=== PATIENT | male | born 1980 | race Caucasian/White ===

== ENCOUNTER 2017-03-23 17:02 | Emergency (ER) | payer OTHER ==
[~2017-03-23] VITALS: Ht 182.9 cm; Wt 81.8 kg
[~2017-03-23 17:02] MED LIST: ADDERALL10 MG PO; TOPROL XL 25MG25 MG PO
[2017-03-23 17:07] VITALS: TEMP 97.1
[2017-03-23 18:23] LABS: BASO % 0.4 % (0.0-2.0); EOS % 0.2 % (0-4.0); GRAN # 5.4 (1.4-6.5); GRAN % 67.4 % (42.2-75.2); HEMATOCRIT 39.2 % (42.0-52.0); HEMOGLOBIN 13.4 g/dl (13.5-18.0); LYMPH # 2.1 (1.2-3.4); LYMPH % 26.3 % (20.0-51.0); MEAN CELL VOLUME 89 fl (80.0-100.0); MEAN CORPUSCULAR HEMOGLOBIN 31 pg (27.0-31.0); MEAN CORPUSCULAR HGB CONC 34 g/dl (33.0-37.0); MEAN PLATELET VOLUME 9.5 fl (7.4-10.4); MONO # 0.4 (0.1-0.6); MONO % 5.5 % (1.7-9.3); PLATELET COUNT 270 K/mm3 (130-400); RED BLOOD COUNT 4.39 M/mm3 (4.20-5.60); REDCELL DISTRIBUTION WIDTH-CV 12.4 % (11.5-14.5)
[2017-03-23 18:34] LABS: ADJUSTED CALCIUM 8.7 mg/dL (8.4-10.2); ALBUMIN 4.7 gm/dL (3.5-5.0); BILIRUBIN,TOTAL 0.7 mg/dL (0.0-1.0); CALCIUM 9.3 mg/dL (8.4-10.2); CREATININE, serum 0.82 mg/dL (0.66-1.25); POTASSIUM 3.6 mmol/L (3.4-5.0); TOTAL PROTEIN 7.7 gm/dL (6.4-8.2)
[2017-03-23] MEDS ORDERED: ZOFRAN 4MG T4 MG/TAB PO (19:42)
[2017-03-23] MEDS ORDERED: CATAPRES 0.1MG0.1 MG PO (19:42)
[2017-03-23 20:09] VITALS: BP 115/71; PULSE 91
== END 2017-03-23 20:39 | disposition other institution (70) ==
LOC: COL.ER 17:02
PROVIDERS: Emergency Medicine
DX: F15.10 Other stimulant abuse, uncomplicated (principal); I10 Essential (primary) hypertension; R44.0 Auditory hallucinations; R44.1 Visual hallucinations; F17.220 Nicotine dependence, chewing tobacco, uncomplicated